=== PATIENT | male | born 1990 | race Caucasian/White ===

== ENCOUNTER 2016-11-17 22:19 | Emergency (ER) | payer OTHER ==
[2016-11-17 22:24] VITALS: BP 138/90
--- NOTE | 2016-11-17 23:49 | ED UPPER/LOWER EXTREMITY COMPL ---
History of Present Illness General Chief Complaint: Lower Extremity Injury Stated Complaint: CUT ON THE RG THIGH Source: patient Exam Limitations: no limitations Vital Signs & Intake/Output Vital Signs & Intake/Output Vital Signs Date Time Temp Pulse Resp B/P Pulse O2 O2 Flow FiO2 Ox Delivery Rate 11/17 2223 98.2 100 22 138/90 99 Allergies Coded Allergies: No Known Allergies (11/17/16) Reconcile Medications No Known Home Medications Triage Note: PER PT PLAYING GOALIE HIT IN RT KNEE WITH SKATE BLADE. UNSURE OF LAST TETANUS Triage Nurses Notes Reviewed? yes Onset: Abrupt Duration: minute(s):, constant, continues in ED Timing: recent history Severity: mild, moderate Pain/Injury Location: Right: Leg. Method of Injury: laceration HPI: 26-year-old male comes into emergency room with laceration to right thigh. Patient reports that an ice skate during a hockey game when into his leg. Last tetanus shot over 10 years ago. Mild throbbing pain. Continuous. Denies any other associated symptoms. Some associated bleeding. (KISHAN TORRES) Past History Travel History Traveled to [place] past 21 day No Medical History Any Pertinent Medical History? see below for history Neurological: NONE Cardiovascular: NONE Respiratory: NONE Gastrointestinal: NONE Hepatic: NONE Renal: NONE Musculoskeletal: NONE Psychiatric: NONE Endocrine: NONE Surgical History Surgical History: non-contributory Psychosocial History What is your primary language Luxembourger Tobacco Use: Never used Family History Hx Contributory? No (KISHAN TORRES) Review of Systems Review of Systems Constitutional: Reports: no symptoms. EENTM: Reports: no symptoms. Respiratory: Reports: no symptoms. Cardiovascular: Reports: no symptoms. Gastrointestinal/Abdominal: Reports: no symptoms. Genitourinary: Reports: no symptoms. Musculoskeletal: Reports: see HPI. Skin: Reports: see HPI. Neurological/Psychological: Reports: no symptoms. Hematologic/Endocrine: Reports: no symptoms. Immunological: Reports: no symptoms. All Other Systems: Reviewed and Negative (KISHAN TORRES) Physical Exam Physical Exam General Appearance: well developed/nourished, mild distress Head: atraumatic Eyes: Bilateral: normal appearance. Ears, Nose, Throat: normal ENT inspection, hearing grossly normal Neck: normal inspection Cardiovascular/Respiratory: no respiratory distress Back: normal inspection Leg Right: 3 inch laceration right thigh Knee Right: normal range of motion, normal inspection Neurologic/Tendon: normal sensation, normal motor functions, normal tendon functions, responds to pain, no evidence tendon injury Skin: intact, normal color, warm/dry Lymphatic: no anterior cervical faby (KISHAN TORRES) Progress Differential Diagnosis: dislocation, DVT, fracture, gout, septic arthritis, sprain, tendon injury Plan of Care: 11/18/2016 12:29:01 AM Patient tolerated procedure well. Have wound check in 3 days. Return if any other concerns. (KISHAN TORRES) Departure Departure Disposition: HOME OR SELF CARE Condition: Stable Clinical Impression Primary Impression: Laceration of right lower extremity Referrals: MARGARITO VILLAREAL,LOLY Salguero (PCP/Family) Additional Instructions: Keep covered with bacitracin and compression wrap. Try to keep your leg as straight as possible when walking to avoid tension on sutures. Watch for signs of infection such as redness on discharge fever chills. Please go over all results of today's visit with your primary care doctor. Contact your primary care doctor to let them know you were here in the emergency room. There may be nonspecific findings which may not be related to your visit today here in the emergency room but may require further evaluation and chronic monitoring by your primary care doctor. If you had a laceration today the chance of foreign body always remains. You should follow-up with your primary care doctor for recheck in 3-5 days for a wound check. If you had an x-ray done there is a chance that a fracture could have been missed on initial read and you should follow-up with your primary care doctor for repeat x-rays if symptoms persist. If your blood pressure was elevated here in the emergency room please have rechecked by her primary care doctor within the next 48 hours by your primary care doctor. If you were prescribed a narcotic here in the emergency room or any type of controlled substances you're not allowed to drive while taking this medication or operate any type of heavy machinery. Narcotics can make you feel lightheaded dizziness nausea and can cause constipation. You may need to tow picker a stool softener. Thank you for choosing [facility] emergency room. Please return to the emergency room immediately if you have any other concerns worsening of symptoms. Departure Forms: Customer Survey General Discharge Information Prescriptions: Current Visit Scripts No Known Home Medications (KISHAN TORRES) PA/KENNEL TECHNICIAN Co-Sign Statement Statement: ED Attending supervision documentation- [] I saw and evaluated the patient. I have also reviewed all the pertinent lab results and diagnostic results. I agree with the findings and the plan of care as documented in the PA's/KENNEL TECHNICIAN's documentation. x I have reviewed the ED Record and agree with the PA's/KENNEL TECHNICIAN's documentation. [] Additions or exceptions (if any) to the PAs/KENNEL TECHNICIAN's note and plan are summarized below: [] (AYLA VILLAREAL,MICHELLE) Procedures Laceration/Wound Repair Laceration/Wound Repair: Wound Location: lower extremity Wound's Depth, Shape: linear Irrigated w/ Saline (ccs): 500 Betadine Prep? Yes Anesthesia: lidocaine w/ epi Volume Anesthetic (ccs): 6 Wound Debrided: moderate Wound Repaired With: sutures Suture Size/Type: 3:0, nylon Number of Sutures: 11 Layer Closure? Yes Sterile Dressing Applied: Yes Tetanus Status: not up to date Progress: 2 mattress sutures (KISHAN TORRES)
== END 2016-11-18 00:03 ==
LOC: ERH 22:19
DX: S81.811A Laceration without foreign body, right lower leg, initial encounter (principal); W45.8XXA Other foreign body or object entering through skin, initial encounter; Y93.22 Activity, ice hockey
CPT/HCPCS: 90471; 90714

== ENCOUNTER 2016-11-29 09:22 | Emergency (ER) | payer OTHER ==
[~2016-11-29] VITALS: Ht 190.5 cm; Wt 95.3 kg
[2016-11-29 09:26] VITALS: BP 146/92
--- NOTE | 2016-11-29 09:52 | ED ANIMAL BITE/WOUND CHECK ---
History of Present Illness General Chief Complaint: Suture Removal/Wound Recheck Stated Complaint: SUTURE REMOVAL Source: patient, old records Exam Limitations: no limitations Vital Signs & Intake/Output Vital Signs & Intake/Output Vital Signs Date Time Temp Pulse Resp B/P Pulse O2 O2 Flow FiO2 Ox Delivery Rate 11/29 0926 97.4 88 20 146/92 100 Room Air Room Air Allergies Coded Allergies: No Known Allergies (11/17/16) Reconcile Medications No Known Home Medications Triage Note: PT TO ED FOR SUTURE (11) REMOVAL FROM RIGHT KNEE AREA. SUTURES HAVE BEEN IN FOR 12 DAYS. Triage Nurses Notes Reviewed? yes Onset: Last week Duration: day(s): (12) Timing: no prior history Injury Environment: ice rink Is Injury an Animal Bite? No Severity: mild Severity Numbers: 1 HPI: Patient is a 26-year-old male here for suture removal. He was seen and evaluated here 12 days ago for a laceration to his right thigh. He received 11 sutures. Reports it's been healing up well. Denies any fevers nausea or vomiting or increasing pain. Has no complaints. (BRENNAN BADILLO) Past History Travel History Traveled to [place] past 21 day No Medical History Any Pertinent Medical History? see below for history Neurological: NONE EENT: NONE Cardiovascular: NONE Respiratory: NONE Gastrointestinal: NONE Hepatic: NONE Renal: NONE Musculoskeletal: NONE Psychiatric: NONE Endocrine: NONE Blood Disorders: NONE Cancer(s): NONE TISSUE COORDINATOR/Reproductive: NONE Tetanus Vaccine: 11/18/16 Surgical History Surgical History: non-contributory Psychosocial History What is your primary language [place]orese Tobacco Use: Never used ETOH Use: occasional use Illicit Drug Use: denies illicit drug use Family History Hx Contributory? No (BRENNAN BADILLO) Review of Systems Review of Systems Constitutional: Reports: no symptoms. Comments Review of systems: See HPI, All other systems negative. Constitutional, no chills fever or weight loss HEENT: No visual changes no sore throat no congestion Cardiovascular: No chest pain Skin, no jaundice no rashes Respiratory: No dyspnea cough sputum or hemoptysis GI: No nausea no vomiting : No dysuria No hematuria Muscle skeletal: no back pain, no neck pain, Neurologic: No numbness Psych: No stress anxiety Immunology: No splenectomy or history of AIDS (BRENNAN BADILLO) Physical Exam Physical Exam General Appearance: well developed/nourished, no apparent distress, alert, awake , comfortable Comments: Well-developed well-nourished no apparent distress. HEENT: Atraumatic, extraocular motion intact Neck: Supple, no lymphadenopathy Back: Nontender Respiratory: No respiratory distress Extremities: No edema, full range of motion Skin: Well-healing 8 cm laceration noted on the right thigh just Roxanol to the right patella. No surrounding erythema or edema. Scalp formation present. 11 sutures intact. Nontender to palpation. Neuro: Alert and oriented x3 Psych: Mood affect normal, normal memory normal judgment. (BRENNAN BADILLO) Progress Differential Diagnosis: cellulitis, suture removal, wound check, laceration Plan of Care: 11 sutures removed without difficulty. (BRENNAN BADILLO) Departure Departure Time of Disposition: 950 Disposition: HOME OR SELF CARE Condition: Stable Clinical Impression Primary Impression: Visit for suture removal Referrals: MARGARITO VILLAREAL,LOLY Salguero (PCP/Family) Additional Instructions: Follow-up with your primary care physician call to make an appointment. Keep clean. Return for worsening symptoms or concerns. Apply bacitracin daily. Departure Forms: Customer Survey General Discharge Information Prescriptions: Current Visit Scripts No Known Home Medications (BRENNAN BADILLO) PA/GUN SYNCHRONIZER Co-Sign Statement Statement: ED Attending supervision documentation- [] I saw and evaluated the patient. I have also reviewed all the pertinent lab results and diagnostic results. I agree with the findings and the plan of care as documented in the PA's/GUN SYNCHRONIZER's documentation. x I have reviewed the ED Record and agree with the PA's/GUN SYNCHRONIZER's documentation. [] Additions or exceptions (if any) to the PAs/GUN SYNCHRONIZER's note and plan are summarized below: [] (MICHELLE AGUILA MD)
== END 2016-11-29 09:57 ==
LOC: ERH 09:22
DX: Z48.02 Encounter for removal of sutures (principal); S71.111D Laceration without foreign body, right thigh, subsequent encounter
CPT/HCPCS: 99281